=== PATIENT | male | born 1950 ===

== ENCOUNTER 2022-10-12 05:34 | Day surgery (SDC) | payer OTHER ==
[~2022-10-12] VITALS: Ht 170.2 cm; Wt 81.6 kg
[~2022-10-12 05:34] MED LIST: LISINOPRIL10 MG PO
== END 2022-10-12 12:00 | disposition home or self-care (01) ==
LOC: CIR.AMB 05:34
PROVIDERS: ATTEND Otolaryngology Otology & Neurotology
DX: H66.91 Otitis media, unspecified, right ear (principal); H72.91 Unspecified perforation of tympanic membrane, right ear; Z20.822 Contact with and (suspected) exposure to COVID-19; I10 Essential (primary) hypertension